=== PATIENT | female | born 1950 | race Caucasian/White ===

== ENCOUNTER 2024-10-27 03:23 | Outpatient (CLI) | payer MEDICARE, OTHER, SELFPAY ==
--- NOTE | 2024-10-27 06:15 | DI.US_ITS ---
Exam(s) US PELVIS TRANSVAGINAL EXAM: US PELVIS TRANSVAGINAL CLINICAL HISTORY: Endometrial stripe,POSTMENOPAUSAL BLEEDING,N95.0 TECHNIQUE: Transabdominal and transvaginal imaging was performed using standard protocol. COMPARISON: No exams were available for comparison FINDINGS: UTERUS: Anteverted. 5.0 x 2.5 x 4.5 cm Endometrium: 3 mm, homogeneous Myometrium: 12 millimeter fundal left-sided fibroid Cervix: Unremarkable. OVARIES: The ovaries were not visualized. . CUL-DE-SAC: Free fluid: None. IMPRESSION: 1. The endometrial stripe is within normal limits. Small fundal fibroid. 2. The ovaries were not visualized. DATA REPOSITORY:
== END 2024-10-27 03:43 ==
LOC: DI 03:24
PROVIDERS: PCP Internal Medicine; Visit Provider Obstetrics & Gynecology
DX: N95.0 Postmenopausal bleeding (principal)
CPT/HCPCS: 76830; 76856